=== PATIENT | female | born 1945 | race Caucasian/White ===

== ENCOUNTER 2018-10-23 15:11 | Emergency (ER) | payer BC, MEDICARE ==
[2018-10-23 16:27] VITALS: BP 166/67
--- NOTE | 2018-10-23 17:07 | UC ---
Lower Extremity/Ankle HPI - HPI Summary HPI Summary: 72 yo female with achy left calf pain and swelling x a day yesterday she twisted her left ankle getting ready for work but she was having pain before this no back pain no hx DVT - History of Current Complaint Chief Complaint: UCLowerExtremity Stated Complaint: LEFT LEG INJ Time Seen by Provider: 10/23/18 16:52 Hx Obtained From: Patient Onset/Duration: Gradual Onset, Lasting Hours Severity Initially: Mild Severity Currently: Moderate Pain Intensity: 6 Pain Scale Used: 0-10 Numeric Aggravating Factor(s): Standing, Ambulation Alleviating Factor(s): Rest, Elevation Able to Bear Weight: Yes Legs: 1 - pain/swelling/tenderness, antalgic gait - Allergies/Home Medications Allergies/Adverse Reactions: Allergies Allergy/AdvReac Type Severity Reaction Status Date / Time No Known Allergies Allergy Verified 10/23/18 16:28 PMH/Surg Hx/FS Hx/Imm Hx Previously Healthy: Yes Cardiovascular History: Hypertension - Surgical History Surgical History: Yes Surgery Procedure, Year, and Place: Left hand tendon repair. hole repaired in heart 1957 - Family History Known Family History: Positive: Hypertension - Social History Alcohol Use: None Substance Use Type: None Smoking Status (MU): Never Smoked Tobacco Review of Systems All Other Systems Reviewed And Are Negative: Yes Constitutional: Positive: Negative Skin: Positive: Negative Eyes: Positive: Negative ENT: Positive: Negative Respiratory: Positive: Negative Cardiovascular: Positive: Negative Gastrointestinal: Positive: Negative Genitourinary: Positive: Negative Motor: Positive: Negative Neurovascular: Positive: Negative Musculoskeletal: Positive: Edema - left lower extr, Myalgia - left calf Neurological: Positive: Negative Psychological: Positive: Negative Physical Exam Triage Information Reviewed: Yes Appearance: Well-Appearing, No Pain Distress, Well-Nourished Vital Signs: Initial Vital Signs Temp 97.6 F 10/23/18 16:18 Pulse 53 10/23/18 16:18 Resp 18 10/23/18 16:18 BP 166/67 10/23/18 16:18 Pulse Ox 100 10/23/18 16:18 Eyes: Positive: Conjunctiva Clear ENT: Positive: Hearing grossly normal. Negative: Nasal congestion, Nasal drainage, Trismus, Muffled voice, Hoarse voice, Uvula midline Dental Exam: Normal Neck: Positive: Supple, Nontender, No Lymphadenopathy Respiratory: Positive: Lungs clear, Normal breath sounds, No respiratory distress, No accessory muscle use Cardiovascular: Positive: RRR, No Murmur Musculoskeletal: Positive: Edema @ - left LE, Other: - left calf Neurological: Positive: Alert Psychological Exam: Normal Lower Extremity Course/Dx - Course Course Of Treatment: d/w Francine Nayak NP to [facility] for further evaluation - Differential Dx/Diagnosis Provider Diagnosis: Leg edema, left Discharge - Sign-Out/Discharge Documenting (check all that apply): Patient Departure All imaging exams completed and their final reports reviewed: No Studies - Discharge Plan Condition: Stable Disposition: HOME-RECOMMEND TO ED Referrals: Amilcar Duran DO [Primary Care Provider] - Additional Instructions: I suggest you go to the ER for further evaluation of your left calf pain and swelling I spoke to Francine Nayak NP and they are expecting you - Billing Disposition and Condition Condition: STABLE Disposition: Home-Recommend to ED
== END 2018-10-23 17:11 | disposition home health service (06) ==
LOC: UCCORT 15:11
DX: R60.0 Localized edema (principal); M79.662 Pain in left lower leg; I10 Essential (primary) hypertension
CPT/HCPCS: 99212; G0463

== ENCOUNTER 2019-08-03 14:39 | Emergency (ER) | payer BC, OTHER ==
[2019-08-03 14:56] VITALS: BP 132/56
--- NOTE | 2019-08-03 15:07 | UC ---
Skin Complaint HPI - HPI Summary HPI Summary: Pt presents with c/o erythematous, mildly tender skin where she applied apple cider vinegar in an attempt to remove skin tags. Pt states she applied the vinegar and left i on for 20 minutes. - History of Current Complaint Chief Complaint: UCSkin Time Seen by Provider: 08/03/19 14:51 Stated Complaint: NECK BURN Hx Obtained From: Patient ?: No Onset/Duration: Gradual Onset, Lasting Days, Still Present Skin Exposure Onset/Duration: Minutes Ago - 20 Timing: Constant Onset Severity: Moderate Current Severity: Moderate Pain Intensity: 7 Location: Discrete - neck Character: Swelling, Pain, Redness Aggravating Factor(s): Touch Alleviating Factor(s): Nothing Associated Signs & Symptoms: Positive: Rash, Tenderness Related History: Possible Reaction to: Food - vinegar applied to skin - Allergy/Home Medications Allergies/Adverse Reactions: Allergies Allergy/AdvReac Type Severity Reaction Status Date / Time No Known Allergies Allergy Verified 08/03/19 14:56 Home Medications: Home Medications [place]-3/Dha/Epa/Fish Oil [Fish Oil 1,000 mg Softgel] 1,000 mg PO DAILY 08/03/19 [History Confirmed 08/03/19] Pravastatin Sodium 40 mg PO DAILY 08/03/19 [History Confirmed 08/03/19] PMH/Surg Hx/FS Hx/Imm Hx Previously Healthy: Yes Cardiovascular History: Cardiac Disease, Hypertension - Surgical History Surgical History: Yes Surgery Procedure, Year, and Place: Left hand tendon repair. hole repaired in heart 1957 - Family History Known Family History: Positive: Hypertension - Social History Occupation: Retired Lives: With Family Alcohol Use: None Substance Use Type: None Smoking Status (MU): Never Smoked Tobacco Have You Smoked in the Last Year: No - Immunization History Vaccination Up to Date: Yes Review of Systems All Other Systems Reviewed And Are Negative: Yes Constitutional: Positive: Negative Skin: Positive: Rash Eyes: Positive: Negative ENT: Positive: Negative Respiratory: Positive: Negative Cardiovascular: Positive: Negative Gastrointestinal: Positive: Negative Genitourinary: Positive: Negative Motor: Positive: Negative Neurovascular: Positive: Negative Musculoskeletal: Positive: Negative Neurological: Positive: Negative Psychological: Positive: Negative Is Patient Immunocompromised?: No Physical Exam Triage Information Reviewed: Yes Appearance: Well-Appearing Vital Signs: Initial Vital Signs Temp 98.6 F 08/03/19 14:53 Pulse 67 08/03/19 14:53 Resp 16 08/03/19 14:53 BP 132/56 08/03/19 14:53 Pulse Ox 100 08/03/19 14:53 Vital Signs Reviewed: Yes Eye Exam: Normal ENT Exam: Normal Dental Exam: Normal Neck exam: Other - erythematous skin Respiratory Exam: Normal Respiratory: Positive: No respiratory distress Musculoskeletal Exam: Normal Neurological Exam: Normal Psychological Exam: Normal Skin Exam: Other - mild erythema, and mildly swollen skin on anteiror neck. All skin tags still attached Course/Dx - Differential Diagnoses - Skin Complaint Differential Diagnoses: Drug Rash, Urticaria - Diagnoses Provider Diagnosis: Chemical burn of skin Discharge ED - Sign-Out/Discharge Documenting (check all that apply): Patient Departure All imaging exams completed and their final reports reviewed: No Studies - Discharge Plan Condition: Stable Disposition: HOME Prescriptions: predniSONE 10 mg TAB [Deltasone 10 MG TAB*] 30 mg PO DAILY #12 tab Patient Education Materials: Chemical Skin Burn (ED) Referrals: Amilcar Duran DO [Primary Care Provider] - If Needed - Billing Disposition and Condition Condition: STABLE Disposition: Home - Attestation Statements Provider Attestation: Per institutional requirements, I have reviewed the chart, however, I was not consulted specifically or made aware of this patient by the midlevel provider. I did not personally evaluate, interact with, or disposition this patient. EK
== END 2019-08-03 15:16 | disposition home or self-care (01) ==
LOC: UCCORT 14:39
DX: T65.891A Toxic effect of other specified substances, accidental (unintentional), initial encounter (principal); T20.47XA Corrosion of unspecified degree of neck, initial encounter; I10 Essential (primary) hypertension; Y92.9 Unspecified place or not applicable
CPT/HCPCS: 99212; G0463